=== PATIENT | female | born 1970 | race Caucasian/White ===

== ENCOUNTER 2025-09-01 13:44 | Observation (INO) ==
[2025-09-01 14:40] LABS: Hematocrit (blood only) 48.0 % (37.0-47.0); Hemoglobin 16.7 g/dl (12.0-16.0); Immature Granulocytes # (auto) 0.01 K/uL (0.01-0.20); Immature Granulocytes % (auto) 0.1 %; Mean Corpuscular Hemoglobin 30.6 pg (25.0-34.0); Mean Corpuscular Volume 87.9 fL (80.0-100.0); Platelet Count 183 K/uL (130-400); RDW Standard Deviation 41.9 fL (36.4-46.3); Red Blood Count 5.46 M/uL (4.20-5.40); White Blood Count 6.89 K/ul (4.8-10.8)
[2025-09-01] MEDS: MoRPHine SULFATE 4 MG/ML 1 ML CARP\\VIAL IV STA (14:51)
[2025-09-01] MEDS: ONDANSETRON INJ 2 MG/ML 2 ML VIAL IV STA (14:51)
[2025-09-01] MEDS: KETOROLAC TROMETHAMINE 15 MG/ML VIAL IV STA (14:52)
[2025-09-01] MEDS: PLASMA-LYTE A 1,000 ML IV ONE (14:52)
--- NOTE | 2025-09-01 14:56 | Emergency Department Note ---
Impression & Plan Diverticulitis, Abdominal pain ED Provider Note NAME: JOANN COSTA AGE: 55 SEX: F : 1970 ARRIVES VIA: Walk-In INFORMANT: Patient, family ED PROVIDER(S): Dagoberto Haro DO CHIEF COMPLAINT: abdominal pain HPI: This is a 55-year-old female with the PMHx of HTN and DM2 presenting to [facility] for further evaluation of abdominal pain. Patient is accompanied by her family who provide additional history. Patient reports ongoing abdominal pain that is worse in the left side. Patient states that she has had nausea. She states this has been ongoing since she was diagnosed with diverticulitis. Patient reports that she completed a full course of Ciprofloxain and Metronidazole. She states that she was originally on ciprofloxacin for a possible UTI and this was extended for diverticulitis. Patient reports numerous abdominal surgical history including , laparoscopic procedures for endometriosis, cholecystectomy and appendectomy. They deny fever or chills. No cough or congestion. Denies chest pain or palpitations. No shortness of breath. No urinary complaints. No recent changes in bowel movements. Patient denies recent changes in medications or OTC supplements. She states that her symptoms have become so severe that she struggles to tolerate p.o. intake. Patient offers no other complaints, today. ADDITIONAL HISTORY OBTAINED: Per HPI Chronic Medical/Social Conditions Affecting Care: Per HPI PAST MEDICAL HISTORY: See Below PAST SURGICAL HISTORY: See Below FAMILY HISTORY: See Below SOCIAL HISTORY: See Below HOME MEDICATIONS: See Below ALLERGIES: See Below VITALS: See Below PHYSICAL EXAMINATION: GENERAL: Sitting up in bed, alert, well appearing, well nourished, no distress, non-toxic EYE EXAM: normal conjunctiva. OROPHARYNX: no exudate, no erythema, lips, buccal mucosa, and tongue normal and mucous membranes are dry NECK: supple, no nuchal rigidity, no adenopathy, non-tender LUNGS: Clear to auscultation. Normal chest wall mechanics HEART: no murmurs, regular rate, regular rhythm ABDOMEN: abdomen soft, TTP in the LLQ and LUQ, no masses, no rebound or guarding. BACK: Back is symmetrical on inspection and there is no deformity, no midline tenderness, no CVA tenderness. SKIN: no rashes and no bruising UPPER EXTREMITIES: upper extremities are grossly normal. LOWER EXTREMITIES: No pitting edema. NEURO EXAM: Normal sensorium, GCS 15, normal speech, no gross weakness of arms, no gross weakness of legs. MEDICAL DECISION MAKING: Differential diagnoses includes but not limited to appendicitis, bowel obstruction, diverticulitis, malignancy, nephrolithiasis, gastroenteritis, ACS, PNA, pancreatitis, hepatobiliary disease, UTI, ovarian torsion, ovarian cyst, ovarian cyst rupture, vaginitis, MSK strain In summary, this is a 55 year old female who presented with LLQ pain. Differential as above. Nursing notes and pertinent past medical records reviewed. Vital signs reviewed and the patient is Afebrile and hemodynamically stable. History and presentation revealed recent diagnosis of diverticulitis that has been ongoing. She was treated for full course with ciprofloxacin and Flagyl now with ongoing symptoms with failure to improve. Physical examination revealed as above. As a result of my initial evaluation, IV access was established and the patient was placed on CCRM. Therapeutics ordered include IVFR, IV Toradol and morphine. Will repeat the patient's CT scan given ongoing symptoms. Diagnostics interpreted by me include EKG and cardiac monitoring as listed below: -Cardiac Monitoring: An order was placed for continuous cardiac monitoring. The monitor shows a rate of 60-100s with regular rhythm. -ECG: Normal sinus rhythm at a ventricular rate of [address] segment changes to suggest STEMI. Intervals normal. Patient completed laboratory studies and imaging. Results independently interpreted by me are no leukocytosis or anemia. There is no significant electrolyte derangements or significant kidney dysfunction from baseline. No changes in LFTs. No UTI on urinalysis. The patient was managed with IV fluid resuscitation and pain control. Patient required further IV opiates for pain control as she had recurrence of pain. Patient again has recurrence of diverticulitis on CT scan. Would consider this a failure of outpatient antibiotics. Vitals and labs are stable. She is having difficulties with p.o. intake. Feel she is unsafe for discharge at this time. Plan for admission for observation. IV abx with IV Zosyn started in the ED. Ultimately, the decision was made to admit the patient for failure of outpatient antibiotics for acute diverticulitis. I discussed the case with the hospitalist service via telephone/Tiger[employer] and they are agreeable to admit the patient to their services. Based on the above, including the patient's age, coexisting illnesses, labs, imaging, and exam findings the decision to treat as an inpatient. I discussed the patient with the hospitalist team who recommended admission to their services. They received the medications, treatments, interventions indicated above and their condition remained stable. I discussed my findings with the patient and their family and they understand and agree with the treatment plan. All patient / family questions were answered to their satisfaction. Consults/Care Managements Discussions: Per MDM ER treatment provided: See above Procedures:none Critical Care: None The chart was completed utilizing [employer] Speech voice recognition software. Grammatical errors, random word insertions, pronoun errors, and incomplete sentences are an occasional consequence of this system due to software limitations, ambient noise, and hardware issues. Any formal questions or concerns about the content, text, or information contained within the body of this dictation should be directly addressed to the physician for clarification. Past Med/Surg History Problem List (Updated 09/02/25 @ 23:16 by Dagoberto Haro DO) Constipation DM2 (diabetes mellitus, type 2) Essential hypertension Dehydration Diverticulitis (Acute) Abdominal pain (Acute) Medical History Kidney stone Social History Smoking Status: Current every day smoker Tobacco Type: Cigarettes Cigarettes Per Day: 6; Do You Dip or Chew Tobacco: No; Hx Alcohol Use: No Hx Substance Use: No Preferred Language: Divehi Communication Ability: Effective Duco Polisher Required: No Beliefs That Will Affect Care: None Current Living Situation: Family Feels Safe at Home: Yes Assistive Devices: Glasses Allergies Allergies Allergy/AdvReac Type Severity Reaction Status Date / Time hydrocodone [From [place]] Allergy Intermediate Itchiness Verified 09/01/25 16:28 Sulfa (Sulfonamide Allergy Intermediate Rash Verified 09/01/25 16:28 Antibiotics) Home Meds Home Medications Medication Instructions Recorded Confirmed alprazolam 0.5 mg tablet 0.5 mg PO TID PRN Anxiety 09/01/25 09/01/25 atorvastatin 10 mg tablet 10 mg PO DAILY 09/01/25 09/01/25 hydrochlorothiazide 12.5 mg tablet 12.5 mg PO DAILY PRN SWELLING 09/01/25 09/01/25 losartan 50 mg tablet 50 mg PO QAM 09/01/25 09/01/25 ondansetron HCl 4 mg tablet 4 mg PO Q8H PRN NAUSEA/VOMITING 09/01/25 09/01/25 potassium chloride 20 mEq 20 meq PO DAILY 09/01/25 09/01/25 tablet,extended release tirzepatide 5 mg/0.5 mL 5 mg subcut WK 09/01/25 09/01/25 subcutaneous pen injector (Anthony) trazodone 50 mg tablet 50 mg PO HS PRN Insomnia 09/01/25 09/01/25 vilazodone 40 mg tablet 40 mg PO QAM 09/01/25 09/01/25 Previous Rx's Medication Instructions Recorded oxycodone 5 mg tablet 5 mg PO Q6H PRN pain #8 tabs 07/19/19 Results & Data (ED) Vital Signs Vital Signs - 24 hr 09/01/25 13:47 09/01/25 15:06 09/01/25 15:06 Temperature 36.8 C Temperature Source Temporal Artery Scan Pulse Rate 108 H Pulse Rate [Right Finger] 78 Pulse Rate from SpO2 Sensor Respiratory Rate 20 18 Respiratory Effort / Characteristics Respiratory Depth Respiratory Pattern Blood Pressure 133/82 Blood Pressure [Right Arm] Blood Pressure Mean 99 Blood Pressure Mean [Right Arm] Blood Pressure Position [Right Arm] Pulse Oximetry 95 94 94 Oxygen Delivery Method Room Air Room Air Room Air Sepsis Recent Fever Within 48 Hours No Sepsis New/Unexplained Change in Mental Status No Sepsis Action Taken by Nursing No Action Required 09/01/25 15:30 09/01/25 15:30 09/01/25 15:30 Temperature Temperature Source Pulse Rate Pulse Rate [Right Finger] Pulse Rate from SpO2 Sensor Respiratory Rate Respiratory Effort / Characteristics Respiratory Depth Respiratory Pattern Blood Pressure 107/69 107/69 107/69 Blood Pressure [Right Arm] Blood Pressure Mean 86 86 86 Blood Pressure Mean [Right Arm] Blood Pressure Position [Right Arm] Pulse Oximetry Oxygen Delivery Method Sepsis Recent Fever Within 48 Hours Sepsis New/Unexplained Change in Mental Status Sepsis Action Taken by Nursing 09/01/25 15:33 09/01/25 15:42 09/01/25 15:51 Temperature Temperature Source Pulse Rate 74 62 74 Pulse Rate [Right Finger] Pulse Rate from SpO2 Sensor 74 62 74 Respiratory Rate 10 L 14 23 Respiratory Effort / Characteristics Respiratory Depth Respiratory Pattern Blood Pressure Blood Pressure [Right Arm] Blood Pressure Mean Blood Pressure Mean [Right Arm] Blood Pressure Position [Right Arm] Pulse Oximetry 95 98 96 Oxygen Delivery Method Sepsis Recent Fever Within 48 Hours Sepsis New/Unexplained Change in Mental Status Sepsis Action Taken by Nursing 09/01/25 16:00 09/01/25 16:10 09/01/25 16:12 Temperature Temperature Source Pulse Rate 76 76 68 Pulse Rate [Right Finger] Pulse Rate from SpO2 Sensor 76 69 Respiratory Rate 20 13 Respiratory Effort / Characteristics Respiratory Depth Respiratory Pattern Blood Pressure Blood Pressure [Right Arm] Blood Pressure Mean Blood Pressure Mean [Right Arm] Blood Pressure Position [Right Arm] Pulse Oximetry 98 98 Oxygen Delivery Method Sepsis Recent Fever Within 48 Hours Sepsis New/Unexplained Change in Mental Status Sepsis Action Taken by Nursing 09/01/25 16:21 09/01/25 16:30 09/01/25 16:42 Temperature Temperature Source Pulse Rate 69 67 72 Pulse Rate [Right Finger] Pulse Rate from SpO2 Sensor 69 67 74 Respiratory Rate 21 14 15 Respiratory Effort / Characteristics Respiratory Depth Respiratory Pattern Blood Pressure Blood Pressure [Right Arm] Blood Pressure Mean Blood Pressure Mean [Right Arm] Blood Pressure Position [Right Arm] Pulse Oximetry 98 98 97 Oxygen Delivery Method Sepsis Recent Fever Within 48 Hours Sepsis New/Unexplained Change in Mental Status Sepsis Action Taken by Nursing 09/01/25 16:48 09/01/25 16:50 09/01/25 16:50 Temperature Temperature Source Pulse Rate 85 Pulse Rate [Right Finger] Pulse Rate from SpO2 Sensor 84 Respiratory Rate 20 Respiratory Effort / Characteristics Respiratory Depth Respiratory Pattern Blood Pressure 111/83 111/83 Blood Pressure [Right Arm] Blood Pressure Mean 89 89 Blood Pressure Mean [Right Arm] Blood Pressure Position [Right Arm] Pulse Oximetry 94 Oxygen Delivery Method Sepsis Recent Fever Within 48 Hours Sepsis New/Unexplained Change in Mental Status Sepsis Action Taken by Nursing 09/01/25 16:50 09/01/25 16:50 09/01/25 16:50 Temperature Temperature Source Pulse Rate Pulse Rate [Right Finger] Pulse Rate from SpO2 Sensor Respiratory Rate Respiratory Effort / Characteristics Respiratory Depth Respiratory Pattern Blood Pressure 111/83 111/83 111/83 Blood Pressure [Right Arm] Blood Pressure Mean 89 89 89 Blood Pressure Mean [Right Arm] Blood Pressure Position [Right Arm] Pulse Oximetry Oxygen Delivery Method Sepsis Recent Fever Within 48 Hours Sepsis New/Unexplained Change in Mental Status Sepsis Action Taken by Nursing 09/01/25 16:51 09/01/25 17:00 09/01/25 17:00 Temperature Temperature Source Pulse Rate 80 Pulse Rate [Right Finger] 73 Pulse Rate from SpO2 Sensor 81 Respiratory Rate 17 18 Respiratory Effort / Characteristics Respiratory Depth Respiratory Pattern Blood Pressure 120/85 Blood Pressure [Right Arm] 95/74 L Blood Pressure Mean 100 Blood Pressure Mean [Right Arm] 81 Blood Pressure Position [Right Arm] Pulse Oximetry 97 95 Oxygen Delivery Method Room Air Sepsis Recent Fever Within 48 Hours Sepsis New/Unexplained Change in Mental Status Sepsis Action Taken by Nursing 09/01/25 17:00 09/01/25 17:00 09/01/25 17:00 Temperature Temperature Source Pulse Rate Pulse Rate [Right Finger] Pulse Rate from SpO2 Sensor Respiratory Rate Respiratory Effort / Characteristics Respiratory Depth Respiratory Pattern Blood Pressure 120/85 120/85 120/85 Blood Pressure [Right Arm] Blood Pressure Mean 100 100 100 Blood Pressure Mean [Right Arm] Blood Pressure Position [Right Arm] Pulse Oximetry Oxygen Delivery Method Sepsis Recent Fever Within 48 Hours Sepsis New/Unexplained Change in Mental Status Sepsis Action Taken by Nursing 09/01/25 17:00 09/01/25 17:00 09/01/25 17:12 Temperature Temperature Source Pulse Rate 84 74 Pulse Rate [Right Finger] Pulse Rate from SpO2 Sensor 84 75 Respiratory Rate 16 24 Respiratory Effort / Characteristics Respiratory Depth Respiratory Pattern Blood Pressure 120/85 Blood Pressure [Right Arm] Blood Pressure Mean 100 Blood Pressure Mean [Right Arm] Blood Pressure Position [Right Arm] Pulse Oximetry 96 95 Oxygen Delivery Method Sepsis Recent Fever Within 48 Hours Sepsis New/Unexplained Change in Mental Status Sepsis Action Taken by Nursing 09/01/25 17:15 09/01/25 17:15 09/01/25 17:15 Temperature Temperature Source Pulse Rate Pulse Rate [Right Finger] Pulse Rate from SpO2 Sensor Respiratory Rate Respiratory Effort / Characteristics Respiratory Depth Respiratory Pattern Blood Pressure 99/73 L 99/73 L 99/73 L Blood Pressure [Right Arm] Blood Pressure Mean 80 80 80 Blood Pressure Mean [Right Arm] Blood Pressure Position [Right Arm] Pulse Oximetry Oxygen Delivery Method Sepsis Recent Fever Within 48 Hours Sepsis New/Unexplained Change in Mental Status Sepsis Action Taken by Nursing 09/01/25 17:15 09/01/25 17:15 09/01/25 17:15 Temperature Temperature Source Pulse Rate 79 Pulse Rate [Right Finger] Pulse Rate from SpO2 Sensor 77 Respiratory Rate 17 Respiratory Effort / Characteristics Respiratory Depth Respiratory Pattern Blood Pressure 99/73 L 99/73 L Blood Pressure [Right Arm] Blood Pressure Mean 80 80 Blood Pressure Mean [Right Arm] Blood Pressure Position [Right Arm] Pulse Oximetry 94 Oxygen Delivery Method Sepsis Recent Fever Within 48 Hours Sepsis New/Unexplained Change in Mental Status Sepsis Action Taken by Nursing 09/01/25 17:21 09/01/25 17:30 09/01/25 17:30 Temperature Temperature Source Pulse Rate 72 Pulse Rate [Right Finger] Pulse Rate from SpO2 Sensor 72 Respiratory Rate 20 Respiratory Effort / Characteristics Respiratory Depth Respiratory Pattern Blood Pressure 95/74 L 95/74 L Blood Pressure [Right Arm] Blood Pressure Mean 79 79 Blood Pressure Mean [Right Arm] Blood Pressure Position [Right Arm] Pulse Oximetry 94 Oxygen Delivery Method Sepsis Recent Fever Within 48 Hours Sepsis New/Unexplained Change in Mental Status Sepsis Action Taken by Nursing 09/01/25 17:30 09/01/25 17:30 09/01/25 17:30 Temperature Temperature Source Pulse Rate Pulse Rate [Right Finger] Pulse Rate from SpO2 Sensor Respiratory Rate Respiratory Effort / Characteristics Respiratory Depth Respiratory Pattern Blood Pressure 95/74 L 95/74 L 95/74 L Blood Pressure [Right Arm] Blood Pressure Mean 79 79 79 Blood Pressure Mean [Right Arm] Blood Pressure Position [Right Arm] Pulse Oximetry Oxygen Delivery Method Sepsis Recent Fever Within 48 Hours Sepsis New/Unexplained Change in Mental Status Sepsis Action Taken by Nursing 09/01/25 17:30 09/01/25 18:31 Temperature Temperature Source Pulse Rate 75 Pulse Rate [Right Finger] 72 Pulse Rate from SpO2 Sensor 76 Respiratory Rate 18 18 Respiratory Effort / Characteristics Non-Labored Spontaneous Respiratory Depth Normal Respiratory Pattern Regular Blood Pressure Blood Pressure [Right Arm] 124/82 Blood Pressure Mean Blood Pressure Mean [Right Arm] 96 Blood Pressure Position [Right Arm] Semi-fowlers Pulse Oximetry 95 96 Oxygen Delivery Method Room Air Sepsis Recent Fever Within 48 Hours Sepsis New/Unexplained Change in Mental Status Sepsis Action Taken by Nursing Laboratory Data 09/02/25 10:28 09/02/25 10:28 Lab Results 09/01/25 09/01/25 09/01/25 Range/Units 14:25 14:35 15:30 WBC 6.89 (4.8-10.8) K/ul RBC 5.46 H (4.20-5.40) M/uL Hgb 16.7 H (12.0-16.0) g/dl Hct 48.0 H (37.0-47.0) % MCV 87.9 (80.0-100.0) fL MCH 30.6 (25.0-34.0) pg MCHC 34.8 (32.0-36.0) g/dL RDW Std Deviation 41.9 (36.4-46.3) fL RDW Coeff of Thanh 13.0 (11.5-14.5) % Plt Count 183 (130-400) K/uL MPV 9.3 L (9.4-12.4) fL Immature Gran % (Auto) 0.1 % Neut % (Auto) 51.6 % Lymph % (Auto) 36.7 % [place] % (Auto) 6.8 % Eos % (Auto) 3.9 % Baso % (Auto) 0.9 % Neut # (Auto) 3.55 (1.40-6.50) K/uL Lymph # (Auto) 2.53 (1.20-3.40) K/uL [place] # (Auto) 0.47 (0.11-0.59) K/uL Eos # (Auto) 0.27 (0.00-0.50) K/uL Baso # (Auto) 0.06 (0.00-0.20) K/uL Immature Gran # (Auto) 0.01 (0.01-0.20) K/uL Sodium 140 (136-145) mmol/L Potassium 4.2 (3.5-5.1) mmol/L Chloride 104 (98-107) mmol/L Carbon Dioxide 27 (21-32) mmol/L Anion Gap 9 (3-11) BUN 8 (6-23) mg/dl Creatinine 0.71 (0.6-1.2) mg/dl Est Cr Clr Drug Dosing 88.2 ml/min eGFR 100.98 BUN/Creatinine Ratio 11.3 (10-20) Glucose 98 (70-99(Fasting)) mg/dl Lactate 1.1 (0.4-2.0) mmol/L Calcium 9.9 (8.6-10.3) mg/dl Total Bilirubin 0.6 (0.2-1.0) mg/dl AST 18 (13-39) U/L ALT 27 (7-52) U/L Alkaline Phosphatase 71 (34-104) U/L Total Protein 7.5 (6.0-8.3) gm/dl Albumin 4.3 (3.4-5.0) gm/dl Globulin 3.2 (2.5-4.0) gm/dl Albumin/Globulin Ratio 1.3 (0.9-2) Lipase 24 (11-82) U/L Urine Color Yellow Urine Appearance Clear (Clear) Urine pH 5.5 (4.5-7.5) Ur Specific [place] 1.012 (1.000-1.030) Urine Protein Negative (Negative) Urine Glucose (UA) Negative (Negative) Urine Ketones Trace H (Negative) Urine Blood Negative (Negative) Urine Nitrite Negative (Negative) Urine Bilirubin Negative (Negative) Urine Urobilinogen Negative (Negative) Ur Leukocyte Esterase Negative (Negative) Urine Comment Administered Medications Al Hydrox/Mg Hydrox/Simethicone (Aluminum/Magnesium/Simeth (Maalox Max) 30 Ml Udc) 30 ml PO QID FACUNDO Stop: 10/01/25 21:00 Last Admin: 09/02/25 20:09 Dose: 30 ml Documented By: angela Admin: 09/02/25 16:55 Dose: 30 ml Documented By: Admin: 09/02/25 13:05 Dose: 30 ml Documented By: Admin: 09/02/25 08:20 Dose: 30 ml Documented By: Admin: 09/01/25 21:31 Dose: 30 ml Documented By: LINNEA Alprazolam (Alprazolam 0.5 Mg Tablet) 0.5 mg PO TID PRN PRN Reason: Anxiety Stop: 10/01/25 21:00 Last Admin: 09/02/25 16:21 Dose: 0.5 mg Documented By: Admin: 09/02/25 11:06 Dose: 0.5 mg Documented By: Admin: 09/01/25 21:54 Dose: 0.5 mg Documented By: LINNEA Enoxaparin Sodium (Enoxaparin Inj 40 Mg/0.4 Ml Syr) 40 mg SQ Q24H [facility] Stop: 10/01/25 20:59 Last Admin: 09/02/25 20:10 Dose: Not Given Documented By: angela Admin: 09/01/25 21:50 Dose: Not Given Documented By: LINNEA Hydromorphone HCl (Hydromorphone Inj 0.5 Mg/0.5 Ml Syr) 0.5 mg IV Q4H PRN PRN Reason: Pain - severe/breakthrough Stop: 09/15/25 21:00 Last Admin: 09/02/25 19:33 Dose: 0.5 mg Documented By: angela Admin: 09/02/25 12:21 Dose: 0.5 mg Documented By: Admin: 09/02/25 08:20 Dose: 0.5 mg Documented By: Admin: 09/02/25 00:59 Dose: 0.5 mg Documented By: HFW Lactated Ringer's (Lr) 1,000 mls @ 100 mls/hr IV .Q10H FACUNDO Stop: 09/04/25 21:00 Last Infusion: 09/02/25 22:37 Dose: 100 mls/hr Documented By: angela Infusion: 09/02/25 22:02 Dose: 0 mls/hr Documented By: angela Infusion: 09/02/25 18:21 Dose: 100 mls/hr Documented By: Admin: 09/02/25 13:36 Dose: 125 mls/hr Documented By: Infusion: 09/02/25 13:31 Dose: Infused Documented By: Admin: 09/02/25 05:31 Dose: 125 mls/hr Documented By: Infusion: 09/02/25 05:31 Dose: Infused Documented By: Admin: 09/01/25 21:31 Dose: 125 mls/hr Documented By: HFW Ampicillin Sodium/Sulbactam Sodium (Unasyn) 3,000 mg in 100 mls @ 200 mls/hr IV Q6H FACUNDO Stop: 09/11/25 21:00 Last Infusion: 09/02/25 22:37 Dose: Infused Documented By: angela Admin: 09/02/25 21:58 Dose: 200 mls/hr Documented By: angela Infusion: 09/02/25 16:39 Dose: Infused Documented By: Admin: 09/02/25 15:56 Dose: 200 mls/hr Documented By: Infusion: 09/02/25 12:19 Dose: Infused Documented By: Admin: 09/02/25 11:06 Dose: 200 mls/hr Documented By: Infusion: 09/02/25 05:29 Dose: Infused Documented By: Admin: 09/02/25 04:58 Dose: 200 mls/hr Documented By: Infusion: 09/01/25 22:51 Dose: Infused Documented By: Admin: 09/01/25 22:13 Dose: 200 mls/hr Documented By: LINNEA Famotidine (Pepcid 20mg Iv Push) 20 mg in 5 mls @ 2.5 mls/min IV Q12H FACUNDO Stop: 10/02/25 05:59 Last Admin: 09/02/25 18:18 Dose: 2.5 mls/min Documented By: Admin: 09/02/25 05:28 Dose: 2.5 mls/min Documented By: LINNEA Pantoprazole Sodium (Protonix) 40 mg in 10 mls @ 5 mls/min IV BID FACUNDO Stop: 10/01/25 21:00 Last Admin: 09/02/25 20:11 Dose: 5 mls/min Documented By: angela Admin: 09/02/25 08:21 Dose: 5 mls/min Documented By: Admin: 09/01/25 21:49 Dose: 5 mls/min Documented By: LINNEA Miscellaneous (Vilazodone 40 Mg - Order Awaiting Action) 1 each N/A QS FACUNDO Stop: 10/02/25 00:00 Last Admin: 09/02/25 15:49 Dose: Not Given Documented By: Admin: 09/02/25 08:21 Dose: Not Given Documented By: Admin: 09/02/25 00:44 Dose: Not Given Documented By: LINNEA Ondansetron HCl (Ondansetron Inj 2 Mg/Ml 2 Ml Vial) 4 mg IV Q4H PRN PRN Reason: Nausea Stop: 10/02/25 01:04 Last Admin: 09/02/25 08:20 Dose: 4 mg Documented By: Admin: 09/02/25 01:21 Dose: 4 mg Documented By: LINNEA Oxycodone HCl (Oxycodone Hcl Ir 5 Mg Tab (Immediate Release)) 5 mg PO Q4H PRN PRN Reason: Pain - moderate Stop: 09/15/25 21:00 Last Admin: 09/02/25 05:00 Dose: 5 mg Documented By: LINNEA Discontinued Medications Acetaminophen (Acetaminophen 325 Mg Tab) 650 mg PO NOW STA Stop: 09/01/25 17:46 Last Admin: 09/01/25 17:53 Dose: 650 mg Documented By: demar Fentanyl Citrate (Fentanyl Citrate Pf 100 Mcg/2 Ml Vial) 50 mcg IV NOW ONE Stop: 09/01/25 16:12 Last Admin: 09/01/25 16:38 Dose: 50 mcg Documented By: demar Hydromorphone HCl (Hydromorphone Inj 0.5 Mg/0.5 Ml Syr) 0.5 mg IV NOW STA Stop: 09/01/25 17:46 Last Admin: 09/01/25 17:52 Dose: 0.5 mg Documented By: demar Parenteral Electrolytes (Plasma-Lyte A Ph 7.4) 1,000 mls @ 999 mls/hr IV .Q1H1M ONE Stop: 09/01/25 15:21 Last Infusion: 09/01/25 16:46 Dose: Infused Documented By: demar Admin: 09/01/25 14:52 Dose: 999 mls/hr Documented By: NELSON Piperacillin Sod/Tazobactam Sod (Zosyn) 4.5 gm in 100 mls @ 200 mls/hr IV NOW ONE; Protocol Stop: 09/01/25 16:40 Last Infusion: 09/01/25 17:36 Dose: Infused Documented By: demar Admin: 09/01/25 16:37 Dose: 200 mls/hr Documented By: demar Parenteral Electrolytes (Plasma-Lyte A Ph 7.4) 1,000 mls @ 125 mls/hr IV .Q8H FACUNDO Stop: 09/04/25 16:14 Last Infusion: 09/01/25 21:03 Dose: Infused Documented By: Infusion: 09/01/25 21:02 Dose: 0 mls/hr Documented By: Admin: 09/01/25 18:36 Dose: 125 mls/hr Documented By: MARLON Famotidine (Pepcid 20mg Iv Push) 20 mg in 5 mls @ 2.5 mls/min IV NOW STA Stop: 09/01/25 17:46 Last Admin: 09/01/25 17:53 Dose: 2.5 mls/min Documented By: demar Ioversol (Optiray 320 100ml) 90 ml IV ONCE ONE Stop: 09/01/25 15:21 Last Admin: 09/01/25 15:21 Dose: 90 ml Documented By: RAFAEL Ketorolac Tromethamine (Ketorolac Tromethamine 15 Mg/Ml Vial) 10 mg IV NOW STA Stop: 09/01/25 14:22 Last Admin: 09/01/25 14:52 Dose: 10 mg Documented By: CAP Morphine Sulfate (Morphine Sulfate 4 Mg/Ml 1 Ml Carp\Vial) 4 mg IV NOW STA Stop: 09/01/25 14:22 Last Admin: 09/01/25 14:51 Dose: 4 mg Documented By: CAP Ondansetron HCl (Ondansetron Inj 2 Mg/Ml 2 Ml Vial) 4 mg IV NOW STA Stop: 09/01/25 14:22 Last Admin: 09/01/25 14:51 Dose: 4 mg Documented By: CAP Polyethylene Glycol (Polyethylene (Miralax) 17 Gm Pack) 85 gm PO ONE ONE Stop: 09/02/25 15:37 Last Admin: 09/02/25 16:16 Dose: 85 gm Documented By: EA Imaging Data Radiologist's Impression: Abdomen/Pelvis CT 09/01/25 14:22 CT SCAN OF THE ABDOMEN AND PELVIS WITH IV CONTRAST CLINICAL HISTORY: Abdominal pain. Evaluate for diverticulitis. COMPARISON STUDY: KUB and renal ultrasound July 19, 2019. TECHNIQUE: Following the IV administration of 90 cc of Optiray 320, CT scan of the abdomen and pelvis is performed from the lung bases to the proximal femora. Images are reviewed in the axial, sagittal, and coronal planes. IV contrast was administered without complication. A dose lowering technique was utilized adhering to the principles of ALARA. CT DOSE: 716.21 mGy.cm FINDINGS: Subpleural lower lobe opacities represent atelectasis. There is no pneumatosis, free air or portal venous gas. Mild prominence of the intrahepatic bile ducts is likely related to cholecystectomy. There are no hepatic lesions. Ventral hernia repair with mesh is incidentally noted. The spleen, adrenal glands, kidneys and pancreas are unremarkable. There is no pancreatic ductal dilatation. There are bilateral renal parapelvic cysts. There is no hydronephrosis. No renal lesions are present. Caliber and wall thickness of small and large bowel are normal. There is a mildly inflamed diverticulum of the splenic flexure of the colon on image 61 of 353. No free air is present. There is no abscess. No additional sites of inflammation are present. The appendix is not visualized and is likely surgically absent. Major vasculature is patent. There is no lymphadenopathy. There are no fluid collections. Pelvic calcifications represent phleboliths. There are no urinary calculi. IMPRESSION: 1. Colonic diverticulosis. Mild diverticulitis of the splenic flexure of the colon. No free air or abscess. 2. No bowel obstruction. 3. Mild prominence of intrahepatic bile ducts likely related to cholecystectomy. ACT 112: Negative or not required by law. Electronically signed by: Fercho Akhtar M.D. 09/01/2025 3:34 PM Discharge Plan Visit Data Chief Complaint: Abdominal Pain Stated Complaint: ABD PAIN, NAUSEA, RECENT DIVERTICULITIS ED Provider: Dagoberto Haro Discharge Problem: Diverticulitis, Abdominal pain Patient Disposition: Admitted As Inpatient Condition: Fair Discharge Instructions Interventions: ED Discharge Assessment Last Done: 09/01/25 20:48
[2025-09-01 14:57] LABS: Alanine Aminotransferase 27.0 U/L (7-52); Albumin Globulin Ratio 1.3 (0.9-2); Albumin Level 4.3 gm/dl (3.4-5.0); Alkaline Phosphatase 71.0 U/L (34-104); Anion Gap 9.0 (3-11); Bilirubin,Total 0.6 mg/dl (0.2-1.0); Blood Urea Nitrogen 8.0 mg/dl (6-23); Calcium 9.9 mg/dl (8.6-10.3); Carbon Dioxide 27.0 mmol/L (21-32); Chloride 104.0 mmol/L (98-107); Creatinine Clr Calc Pharmacy 88.2 ml/min; Globulin 3.2 gm/dl (2.5-4.0); Glucose 98.0 mg/dl (70-99(Fasting)); Lipase 24.0 U/L (11-82); Potassium 4.2 mmol/L (3.5-5.1); Sodium 140.0 mmol/L (136-145); Total Protein 7.5 gm/dl (6.0-8.3)
[2025-09-01] MEDS: OPTIRAY 320 100ml IV ONE (15:21)
--- NOTE | 2025-09-01 15:36 | CT Scan Report ---
CT SCAN OF THE ABDOMEN AND PELVIS WITH IV CONTRAST CLINICAL HISTORY: Abdominal pain. Evaluate for diverticulitis. COMPARISON STUDY: [facility]UB and renal ultrasound July 19, 2019. TECHNIQUE: Following the IV administration of 90 cc of Optiray 320, CT scan of the abdomen and pelvis is performed from the lung bases to the proximal femora. Images are reviewed in the axial, sagittal, and coronal planes. IV contrast was administered without complication. A dose lowering technique was utilized adhering to the principles of ALARA. CT DOSE: 716.21 mGy.cm FINDINGS: Subpleural lower lobe opacities represent atelectasis. There is no pneumatosis, free air or portal venous gas. Mild prominence of the intrahepatic bile ducts is likely related to cholecystecto my. There are no hepatic lesions. Ventral hernia repair with mesh is incidentally noted. The spleen, adrenal glands, kidneys and pancreas are unremarkable. There is no pancreatic ductal dilatation. Ther e are bilateral renal parapelvic cysts. There is no hydronephrosis. No renal lesions are present. Greg iber and wall thickness of small and large bowel are normal. There is a mildly inflamed diverticulum of the splenic flexure of the colon on image 61 of 353. No free air is present. There is no abscess. No additional sites of inflammation are present. The appendix is not visualized and is likely surgica lly absent. Major vasculature is patent. There is no lymphadenopathy. There are no fluid collections. Pelvic calcifications represent phleboliths. There are no urinary calculi. IMPRESSION: 1. Colonic diverticulosis. Mild diverticulitis of the splenic flexure of the colon. No free air or ab scess. 2. No bowel obstruction. 3. Mild prominence of intrahepatic bile ducts likely related to cholecystectomy. ACT 112: Negative or not required by law. Electronically signed by: Fercho Akhtar M.D. 09/01/2025 3:34 PM
[2025-09-01 15:43] LABS: Appearance Urine Clear (Clear); Glucose Urine UA Negative (Negative)
[2025-09-01] MEDS: PIPERACILLIN/TAZOBACTAM 4.5 GM/100 ML BAG IV ONE (16:37)
--- NOTE | 2025-09-01 17:24 | History & Physical Report ---
Date of Service September 01, 2025 Assessment & Plan (1) Abdominal pain: (2) Diverticulitis: (3) Dehydration: (4) Essential hypertension: (5) DM2 (diabetes mellitus, type 2): Plan #abdominal pain -carrying dx diverticulitis - but was Rx'd with cipro/flagyl and pain predominantly R sided while CT findings c/w splenic flexture diverticulitis -doubt failed abx - but with no perforation or abscess, hard to disprove ongoing diverticulitis -suspect some pain from diverticulitis, some from gas/fecal burden -with pain and poor PO intake, looking dehydrated - also suspect some pain from the general abdominal malaise that often comes with dehydration ---admit, pain control, serial exams ---unasyn to cover for possible ongoing diverticulitis ---bowel regimen - right now start w mylanta QID as osmotic laxative that hopefully can still help w upper GI sx some --serial exams, serial labs, serial hx, time//follow for changes #dehydration -IV fluids #polycythemia -likely volume contraction from dehydration -CBC in AM #HTN -hold home meds for now since volume depleted #DM -well controlled - with A1c 5's nothing needed #DVT proph -lovenox History of Present Illness Chief Complaint: abdominal pain Primary Care Provider: Nino Spears PA-C Patient is a very pleasant 55-year-old female who presents with about 2 weeks of abdominal pain. She started with right-sided abdominal pain about 2 weeks ago. Was treated with Cipro and Flagyl, but has not improved at all. At one point early in the course she also had some degree of urethral pain and urinary urgency, and given that she had right sided pain and the urinary symptoms, she had a CT scan with concern for if she was passing kidney stone/had pyelonephritisthis was whenever she was first shown to have diverticulitisbut at the splenic flexure. Since the initial onset of right sided abdominal pain, it has secondarily generalized and is now fairly diffuse. She does note also having to strain for bowel movements. No fevers chills or sweats. Poor p.o. intake and some indigestion, although not overt vomiting. Notes she has been feeling so bad and has had such bad p.o. intake over the last 2 weeks she has lost about 12 pounds. Past medical history includes well-controlled diabetesshe notes she is on Mounjaro but also notes that her last A1c was in the mid fives. Hypertension. Depression/anxiety. Family history includes diabetes, hyperlipidemia, hypertension. She is an RN at [employer]. Allergies Allergy/AdvReac Type Severity Reaction Status Date / Time hydrocodone [From [place]] Allergy Intermediate Itchiness Verified 09/01/25 16:28 Sulfa (Sulfonamide Allergy Intermediate Rash Verified 09/01/25 16:28 Antibiotics) Home Medications Medication Instructions Recorded Confirmed Type oxycodone 5 mg tablet 5 mg PO Q6H PRN pain #8 tabs 07/19/19 09/01/25 Rx alprazolam 0.5 mg tablet 0.5 mg PO TID PRN Anxiety 09/01/25 09/01/25 History atorvastatin 10 mg tablet 10 mg PO DAILY 09/01/25 09/01/25 History hydrochlorothiazide 12.5 mg tablet 12.5 mg PO DAILY PRN SWELLING 09/01/25 09/01/25 History losartan 50 mg tablet 50 mg PO QAM 09/01/25 09/01/25 History ondansetron HCl 4 mg tablet 4 mg PO Q8H PRN NAUSEA/VOMITING 09/01/25 09/01/25 History potassium chloride 20 mEq 20 meq PO DAILY 09/01/25 09/01/25 History tablet,extended release tirzepatide 5 mg/0.5 mL 5 mg subcut WK 09/01/25 09/01/25 History subcutaneous pen injector (Mounjaro) trazodone 50 mg tablet 50 mg PO HS PRN Insomnia 09/01/25 09/01/25 History vilazodone 40 mg tablet 40 mg PO QAM 09/01/25 09/01/25 History Past Med/Surg History Problem List (Updated 09/01/25 @ 17:44 by Talat Rudolph DO) DM2 (diabetes mellitus, type 2) Essential hypertension Dehydration Diverticulitis Abdominal pain Medical History Kidney stone Social History Smoking Status: Current every day smoker Preferred Language: Albanian Feels Safe at Home: Yes Review of Systems Review of Systems: All systems reviewed & are unremarkable except as noted in HPI & below Physical Exam Physical Exam: In general she is awake alert pleasant no distress but does appear quite fatigued. HEENT normocephalic atraumatic mucous membranes slightly dry. Cardio is regular without rubs murmurs or gallops. Lungs clear without rales rhonchi or wheezes good effort no accessory muscle use. Abdomen is soft, mild diffuse tenderness seems to be worse epigastric and right sided, a little bit left- sided. No guarding rebound or rigidity. Extremities show no sinus clubbing or edema no calf tenderness. Neuro without focal deficits. Skin without rashes pallor or icterus. Labs and diagnostics notedCT scan from [facility] from previous showed splenic diverticulitis and I believe moderate fecal retention, CT scan from today reviewed as wellsplenic flexure diverticulitis no abscessand to my review while there is not an overwhelming amount of gas and feces there is notable gas and feces. Appendix not visualized. Results & Data Results & Data Vital Signs (Past 12 Hours) Vital Signs Temp Pulse Pulse Resp BP Pulse Ox O2 Del Method 09/01/25 16:10 76 09/01/25 15:42 62 14 98 09/01/25 15:33 74 10 L 95 09/01/25 15:30 107/69 09/01/25 15:30 107/69 09/01/25 15:30 107/69 09/01/25 15:06 94 Room Air 09/01/25 15:06 78 18 94 Room Air 09/01/25 13:47 98.2 F 108 H 20 133/82 95 Room Air Code Status & VTE Plan VTE Prophylaxis Plan VTE Prophylaxis will be ordered: Yes PG Care Time/CCT Total # of Minutes Spent Total Time Spent with Patient: Total time spent is greater than 50% in coordination of care (as documented) at patient's floor/unit and/or counseling patient: Coding Level of Care Code 90654 INT INP/OBS CARE 3/75MIN Diagnoses Abdominal pain R10.9 Diverticulitis K57.92 Dehydration E86.0 Essential hypertension I10 DM2 (diabetes mellitus, type 2) E11.9
[2025-09-01] MEDS: HYDROmorphone INJ 0.5 MG/0.5 ML SYR IV STA (17:52)
[2025-09-01] MEDS: ACETAMINOPHEN 325 MG TAB PO STA (17:53)
[2025-09-01] MEDS: FAMOTIDINE 20MG IV PUSH 20 MG/5 ML SYR IV STA (17:53)
[2025-09-01] MEDS: PLASMA-LYTE A 1,000 ML IV SCH (18:36)
[2025-09-01] MEDS ORDERED: MAGNESIUM HYDROXIDE SUSP 30 ML UDC PO PRN (21:01)
[2025-09-01] MEDS ORDERED: KETOROLAC TROMETHAMINE 15 MG/ML VIAL IV PRN (21:01)
[2025-09-01] MEDS ORDERED: ALUMINUM/MAGNESIUM SUSP 30 ML UDC PO PRN (21:01)
[2025-09-01] MEDS: LACTATED RINGER'S 1,000 ML IV SCH (21:31)
[2025-09-01] MEDS: ALUMINUM/MAGNESIUM/SIMETH (MAALOX MAX) 30 ML UDC PO SCH (21:31)
[2025-09-01] MEDS: PANTOprazole 40 MG/10 ML SYR IV SCH (21:49)
[2025-09-01] MEDS: ENOXAPARIN INJ 40 MG/0.4 ML SYR SQ SCH (21:50)
[2025-09-01] MEDS: AMPICILLIN/SULBACTAM SOD 3,000 MG/100 ML BAG IV SCH (22:13)
[2025-09-02] MEDS: HYDROmorphone INJ 0.5 MG/0.5 ML SYR IV PRN (00:59)
[2025-09-02] MEDS: ONDANSETRON INJ 2 MG/ML 2 ML VIAL IV PRN (01:21)
[2025-09-02] MEDS: FAMOTIDINE 20MG IV PUSH 20 MG/5 ML SYR IV SCH (05:28)
--- NOTE | 2025-09-02 10:40 | Hospitalist Progress Note ---
Date of Service September 02, 2025 Assessment & Plan (1) Abdominal pain: (2) Constipation: (3) Diverticulitis: (4) DM2 (diabetes mellitus, type 2): Plan Ninfa is a 55yo female with PMHx diverticulosis w/ diverticulitis, HTN, DM2, came to the ED for continued abdominal pain R>L despite cipro and flagyl for outpatient mgmt of diverticulitis, admitted for abdominal pain, possible refractory diverticulitis. Requires continued inpatient monitoring and medical management. #Abdominal pain Likely due to combination of known stool burden and diverticulitis on imaging - recently on cipro/flagyl, pain predominantly R>L however CT findings c/w splenic flexure diverticulitis - no perforation or abscess seen on imaging, and with generally benign abdominal exam - likely some from contributed from gas/fecal burden - continue pain control and serial abd exams - continue Unasyn to cover for possible ongoing diverticulitis, plan to transition to Augmentin once better tolerating PO - continue mylanta QID as osmotic laxative with plan to escalate to Miralax vs GoLytely if continued no BM #Dehydration - continue LR 125cc/hr, consider dec to 80cc once increased PO intake #Polycythemia -likely volume contraction from dehydration -CBC in AM: if continued elevated Hgb and Hct despite re-hydration, will consider peripheral smear #HTN - continue holding home meds while BP still soft and re-hydrating #DM2 -well controlled - with A1c 5's nothing needed DVT proph -lovenox Admission and Anticipated Discharge Date Admission Date: September 01, 2025 Supervising Physician Co-Signing Physician Notes I personally examined the patient and verified all [place] points of history and exam, discussed case, and agree with decision making with Dr Ibrahim Feeling about the same. No new changes. Also has not had a bowel movement. Vitals noted, in general she is awake and alert fatigued. HEENT normocephalic atraumatic mucous membranes moist. Abdomen is soft mild distention mild to moderate right sided and epigastric abdominal tenderness without guarding or reboundalmost identical to yesterday. Abdominal paincurrent working diagnosis would be that she had diverticulitisthis has either resolved or is resolving (continue to cover with antibiotics given that it does not clear that it is totally gone)but that the current abdominal pain is more due to constipationwhich was probably subsequent to the GI distress from the diverticulitis, as well as side effect of pain medication. Given that she was feeling sick, we were trying to utilize Mylanta as an osmotic laxative as a bowel regimen, but it has been met with no effect. She does feel like she could tolerate more aggressive regimenMiraLAX 85 g p.o. x 1 nowif this does not affect decent bowel movements, then we will probably just escalate to a bowel prep for colonoscopy. DVT prophylaxisLovenox Otherwise as above. Anoop Ocasio was seen and evaluated at bedside this AM. Endorses not feeling much improvement of her abdominal pain which was a 6/10 earlier but now 0-11/04 after receiving her pain meds. Denies any BM or passing gas since 08/31, which is abnormal for her. Endorses some nausea but no vomiting. Physical Exam Physical Exam: Gen: appearing in mild distress, tired CV: RRR, +s1/s2, no m/r/g Resp: clear to auscultation b/l, no w/r/R, no increased WOB GI/Abd: normo-hyperactive BS, no obvious distension, no guarding but tenderness to palpation of general abdomen mostly RLQ>LLQ>epigastric Neuro: no facial droop, speech intact, no focal deficits Results & Data Results & Data Vital Signs (Past 12 Hours) Vital Signs Temp Pulse Resp BP Pulse Ox O2 Del Method 09/02/25 07:49 36.9 C 67 16 92/63 L 99 Room Air Resident Activity Tracking Resident Involvement: Resident Care Provided Care Provided: Adult Hospital Medicine (2) Constipation Constipation type: unspecified constipation type Qualified Code(s): K59.00 - Constipation, unspecified
[2025-09-02 10:41] LABS: Hematocrit (blood only) 43.8 % (37.0-47.0); Hemoglobin 14.4 g/dl (12.0-16.0); Immature Granulocytes # (auto) 0.01 K/uL (0.01-0.20); Immature Granulocytes % (auto) 0.2 %; Mean Corpuscular Hemoglobin 30.1 pg (25.0-34.0); Mean Corpuscular Volume 91.4 fL (80.0-100.0); Platelet Count 150 K/uL (130-400); RDW Standard Deviation 42.8 fL (36.4-46.3); Red Blood Count 4.79 M/uL (4.20-5.40); White Blood Count 4.80 K/ul (4.8-10.8)
[2025-09-02 10:58] LABS: Anion Gap 6.0 (3-11); Blood Urea Nitrogen 7.0 mg/dl (6-23); Calcium 9.0 mg/dl (8.6-10.3); Carbon Dioxide 31.0 mmol/L (21-32); Chloride 104.0 mmol/L (98-107); Creatinine Clr Calc Pharmacy 84.6 ml/min; Glucose 88.0 mg/dl (70-99(Fasting)); Potassium 3.7 mmol/L (3.5-5.1); Sodium 141.0 mmol/L (136-145)
[2025-09-02] MEDS: POLYETHYLENE (MIRALAX) 17 GM PACK PO ONE (16:16)
--- NOTE | 2025-09-02 17:43 | Billing Data ---
Date of Service September 02, 2025 Coding Level of Care Code 04605 SUB INP/OBS CARE
[2025-09-03] MEDS: POLYETHYLENE (MIRALAX) 17 GM PACK PO PRN (04:18)
--- NOTE | 2025-09-03 07:34 | Hospitalist Progress Note ---
Date of Service September 03, 2025 Assessment & Plan (1) Abdominal pain: (2) Constipation: (3) Diverticulitis: (4) DM2 (diabetes mellitus, type 2): Plan Ninfa is a 55yo female with PMHx diverticulosis w/ diverticulitis, HTN, DM2, came to the ED for continued abdominal pain R>L despite cipro and flagyl for outpatient mgmt of diverticulitis, admitted for abdominal pain, possible diverticulitis vs constipation vs other. Requires continued inpatient monitoring and medical management. #Abdominal pain Initially thought to be due to combination of known stool burden and diverticulitis on imaging - recently on cipro/flagyl, pain predominantly R>L how ever CT findings c/w splenic flexure diverticulitis - no perforation or abscess seen on imaging, and with generally benign abdominal exam - Escalated bowel regimen to GoLytely after Miralax 85g day prior was unsuccessful in relieving stool burden - continue Unasyn to cover for possible ongoing diverticulitis, plan to transition to Augmentin once better tolerating PO ---- in spite of all of this, her symptoms did not change in the least since admission, and she noted that the symptoms were really almost identical to the symptoms that she has been dealing with for the last few weeks. Other di fferentials seem to be exhausted based on her history and workup, and she did have abdominal wall trigger points (to at least epigastric, and 1 in her right lower abdomen) that were fairly tender to palpationwith no other clear etiology, we are suspecting somatic visceral reflex from the abdominal wall trigger points. Patient herself is understandably skeptical. Gave her information on this, but also offered to get additional opinions which she would appreciate. Consult GI and surgery, but if no other clear etiologies present themselves, or she continues to not to get better, would recommend abdominal wall trigger point injections #Dehydration - continue LR 100cc/hr while PO intake still subpar #Polycythemia, resolved -likely volume contraction from dehydration, currently resolved - if CBC 11/10 AM additionally normal may remove from differential #HTN - continue holding home meds while BP still soft and re-hydrating #DM2 -well controlled - with A1c 5's nothing needed DVT proph -lovenox Admission and Anticipated Discharge Date Admission Date: September 01, 2025 Supervising Physician Co-Signing Physician Notes I personally examined the patient and verified all burn[place] points of history and exam, discussed case, and agree with decision making with Dr Ibrahim Feeling about the same. No new changes. Also has not had a bowel movement. Vitals noted, in general she is awake and alert fatigued. HEENT normocephalic atraumatic mucous membranes moist. Abdomen is soft mild distention mild to moderate right sided and epigastric abdominal tenderness without guarding or reboundalmost identical to yesterday. Abdominal pain after several days of treating as though it was diverticulitis and constipation, we have been doing antibiotics and affecting a lot of bowel movementsbut affected zero change in her symptoms. This led to reexaminationand now my leading differential is somatic visceral reflex from abdominal wall trigger points. She is understandably skeptical about thisoffered injections, but she would prefer to exhaust other diagnostic considerations firstwill ask GI and surgery to see her. Discussed that confirming trigger points as an etiology is generally not under the purview of GI or surgery, but rather consulting them to see if they were to see any other etiologies that we would be overlooking prior to proceeding with trigger point injections. DVT prophylaxisLovenox Otherwise as above. Anoop Ocasio was seen and evaluated at bedside this AM. Notes Miralax day prior only triggered watery stool which she still had to strain to produce. Still having abdominal pain and some nausea but no vomiting. Tolerating small amt solids. On board to try GoLytely. Physical Exam Physical Exam: Gen: appearing in mild distress, tired CV: RRR, +s1/s2, no m/r/g Resp: clear to auscultation b/l, no w/r/R, no increased WOB GI/Abd: normo-hyperactive BS, no obvious distension, no guarding but tenderness to palpation of general abdomen mostly RLQ>LLQ>epigastric Neuro: no facial droop, speech intact, no focal deficits Results & Data Results & Data Vital Signs (Past 12 Hours) Vital Signs Temp Pulse Resp BP Pulse Ox O2 Del Method 09/03/25 07:26 37.2 C 62 16 131/83 96 Room Air 09/02/25 23:29 36.5 C 56 L 16 115/75 93 Room Air Resident Activity Tracking Resident Involvement: Resident Care Provided Care Provided: Adult Hospital Medicine (2) Constipation Constipation type: unspecified constipation type Qualified Code(s): K59.00 - Constipation, unspecified
[2025-09-03 07:48] LABS: Anion Gap 3.0 (3-11); Blood Urea Nitrogen 4.0 mg/dl (6-23); Calcium 9.0 mg/dl (8.6-10.3); Carbon Dioxide 32.0 mmol/L (21-32); Chloride 109.0 mmol/L (98-107); Creatinine Clr Calc Pharmacy 99.4 ml/min; Glucose 92.0 mg/dl (70-99(Fasting)); Potassium 4.1 mmol/L (3.5-5.1); Sodium 144.0 mmol/L (136-145)
[2025-09-03] MEDS: LAVAGE SOLUTION 4000ML PO SCH (12:03)
[2025-09-03] MEDS ORDERED: HYDROCORTISONE ACETATE 25 MG SUPP PR PRN (14:41)
[2025-09-03] MEDS: INFLUENZA VACC TS2025-26(6m+)/PF (IIV3) 0.5mL Syr IM ONE (17:43)
--- NOTE | 2025-09-03 19:07 | Billing Data ---
Date of Service September 03, 2025 Coding Level of Care Code 03844 SUB INP/OBS CARE MIN
[2025-09-04] MEDS ORDERED: Nursing to Pharmacy Communication SCH (04:45)
--- NOTE | 2025-09-04 06:46 | Hospitalist Progress Note ---
Date of Service September 04, 2025 Assessment & Plan (1) Abdominal pain: (2) Constipation: (3) Diverticulitis: (4) DM2 (diabetes mellitus, type 2): Plan Ninfa is a 55yo female with PMHx diverticulosis w/ diverticulitis, HTN, DM2, came to the ED for continued abdominal pain R>L despite cipro and flagyl for outpatient mgmt of diverticulitis, admitted for abdominal pain, possible diverticulitis vs constipation vs other. Requires continued inpatient monitoring and medical management. #Abdominal pain Likely due to combination of known stool burden and diverticulitis on imaging - recently on cipro/flagyl, pain predominantly R>L however CT findings c/w splenic flexure diverticulitis - no perforation or abscess seen on imaging, and with generally benign abdominal exam -GI consultation today. Would like to observe today and plan to do colonoscopy in the outpatient. -Unasyn switched to Augmentin today -Switched IV Pantoprazole and Famotidine to PO. If continues to remain well, hopefully can be discharged tomorrow. #Polycythemia, resolved -likely volume contraction from dehydration, currently resolved #HTN - continue holding home meds while BP still soft and re-hydrating #DM2 -well controlled - with A1c 5's nothing needed DVT proph -lovenox Admission and Anticipated Discharge Date Admission Date: September 01, 2025 Supervising Physician Co-Signing Physician Notes ATTESTATION I also saw the patient and confirmed [place] portions of the history and exam. I agree with the impression and plan in the resident documentation, and as summarized below. Fortunately, she is feeling much better this afternoon. She has been seen in consultation by gastroenterology and general surgery. She notes that today is the best she has felt since this all started. Upon our mid afternoon exam, mayi barrientos has several family embers at bedside. EXAM Hemodynamically stable and afebrile Alert and oriented. No distress appreciated. Heart regular rate and rhythm Respirations nonlabored Abdomen soft and nontender with my palpation upon examination. DATA Labs CBC and metabolic profile are unremarkable this morning. IMPRESSION & PLAN Diverticulitis Appreciate input of consultants She is looking much better today Will switch her over to p.o. Augmentin, first dose this evening to assure tolerability If she does well on Augmentin, should be able to get her home tomorrow a.m. with outpatient follow-up with gastroenterology Discussed that she will need a colonoscopy, likely 6-8 weeks post discharge. Additional per resident documentation Anoop Ocasio was seen and evaluated at bedside this AM.She reported that her abdominal pain is much improved. Infact she is having no pain at all. Denies any overnight events or new concerns. Review of Systems Review of Systems: As per HPI Physical Exam Constitutional: well developed Gastrointestinal (Abdomen): normal bowel sounds, soft, nontender, no hepatosplenomegaly Psychiatric: Orientation: alert and oriented x 3 Results & Data Results & Data Vital Signs (Past 12 Hours) Vital Signs Temp Pulse Resp BP Pulse Ox O2 Del Method 09/03/25 22:25 36.5 C 58 L 16 114/73 93 Room Air Resident Activity Tracking Resident Involvement: Resident Care Provided Care Provided: Adult Hospital Medicine (2) Constipation Constipation type: unspecified constipation type Qualified Code(s): K59.00 - Constipation, unspecified
[2025-09-04 06:59] LABS: Hematocrit (blood only) 39.1 % (37.0-47.0); Hemoglobin 13.1 g/dl (12.0-16.0); Mean Corpuscular Hemoglobin 30.5 pg (25.0-34.0); Mean Corpuscular Volume 90.9 fL (80.0-100.0); Platelet Count 141 K/uL (130-400); RDW Standard Deviation 41.1 fL (36.4-46.3); Red Blood Count 4.30 M/uL (4.20-5.40); White Blood Count 5.85 K/ul (4.8-10.8)
[2025-09-04 07:12] LABS: Anion Gap 5.0 (3-11); Blood Urea Nitrogen 5.0 mg/dl (6-23); Calcium 8.8 mg/dl (8.6-10.3); Carbon Dioxide 31.0 mmol/L (21-32); Chloride 109.0 mmol/L (98-107); Creatinine Clr Calc Pharmacy 87.0 ml/min; Glucose 105.0 mg/dl (70-99(Fasting)); Potassium 3.8 mmol/L (3.5-5.1); Sodium 145.0 mmol/L (136-145)
--- NOTE | 2025-09-04 08:55 | Electrocardiogram Report ---
Test Reason : Blood Pressure : */* mmHG Vent. Rate : 80 BPM Atrial Rate : 80 BPM P-R Int : 140 ms QRS Dur : 72 ms QT Int : 374 ms P-R-T Axes : 34 55 60 degrees QTcB Int : 431 ms Normal sinus rhythm Normal ECG No previous ECGs available Confirmed by Medardo De Souza ([id number]) on 09/04/2025 8:55:26 AM Referred By: REFERRED SELF Confirmed By: Medardo De Souza
--- NOTE | 2025-09-04 10:50 | Surgery Consultation ---
Date of Consultation September 04, 2025 Assessment & Plan (1) Diverticulitis: Plan Patient currently appears to be recovering well on IV antibiotics, abdominal pain has resolved, white blood cell count normal, afebrile. There is currently no indication for emergent surgical exploration at this time and we believe that she can follow-up with our colorectal specialist, Dr. Gregorio as an outpatient in 2 to 4 weeks, after completing a course of oral antibiotics to discuss performing a colonoscopy and the possibility of future surgery to reduce risk of recurrence of this diverticulitis. We believe that she could be transitioned to oral Augmentin at the time of discharge for an additional 10 days. Remainder of her care per the primary medicine team, general surgery will sign off at this time, but please recall or consult with any questions or concerns. History of Present Illness Reason for Consultation: Diverticulitis Attending Physician: Jeremiah Bui, DO History of Present Illness Patient is a 55-year-old female with a past medical history significant for hypertension, diabetes, and a recent diagnosis of diverticulitis, who presents to [facility] emergency department on September 01 complaining of abdominal pain times approximately 2 weeks. Patient states that she initially developed abdominal pain, localized to the lower pelvic area, described as sharp and stabbing, but no radiation of the pain, and no obvious aggravating or relieving factors. Initially, the patient did have some dysuria and urinary urgency and was concerned that she had a UTI or kidney stone which she has had in the past. Initially started on Cipro, but the lower pelvic pain worsened and so she had a CAT scan of the abdomen pelvis that showed findings concerning for diverticulitis along with splenic flexure. Oral Flagyl was added, but after several days the patient continued to experience significant abdominal pain, so she came to the emergency department for evaluation. Upon initial presentation the patient was hemodynamically stable and afebrile. Her exam was significant for moderate generalized tenderness to palpation, primarily in the epigastric area and right flank, but no overt peritoneal signs. Her labs were relatively unremarkable, her white blood cell count was normal. She had a CAT scan of the abdomen pelvis that showed findings concern for vague haziness in the splenic flexure concerning for possible diverticulitis. There were concerns for possible failure of oral antibiotic therapy, so she was admitted to the hospitalist service for IV antibiotics. General surgery/colorectal surgery was consulted today for our evaluation. Upon initial evaluation today, the patient states that she is feeling much better, states that her abdominal pain has resolved, tolerating a regular diet this morning without any nausea or vomiting, afebrile, again white blood cell count normal. Patient denies any chest pain, shortness of breath, nausea, vomiting, fevers or chills. Allergies Allergy/AdvReac Type Severity Reaction Status Date / Time hydrocodone [From [place]] Allergy Intermediate Itchiness Verified 09/01/25 16:28 Sulfa (Sulfonamide Allergy Intermediate Rash Verified 09/01/25 16:28 Antibiotics) Home Medications Medication Instructions Recorded Confirmed Type oxycodone 5 mg tablet 5 mg PO Q6H PRN pain #8 tabs 07/19/19 09/01/25 Rx alprazolam 0.5 mg tablet 0.5 mg PO TID PRN Anxiety 09/01/25 09/01/25 History atorvastatin 10 mg tablet 10 mg PO DAILY 09/01/25 09/01/25 History hydrochlorothiazide 12.5 mg tablet 12.5 mg PO DAILY PRN SWELLING 09/01/25 09/01/25 History losartan 50 mg tablet 50 mg PO QAM 09/01/25 09/01/25 History ondansetron HCl 4 mg tablet 4 mg PO Q8H PRN NAUSEA/VOMITING 09/01/25 09/01/25 History potassium chloride 20 mEq 20 meq PO DAILY 09/01/25 09/01/25 History tablet,extended release tirzepatide 5 mg/0.5 mL 5 mg subcut WK 09/01/25 09/01/25 History subcutaneous pen injector (Mounjaro) trazodone 50 mg tablet 50 mg PO HS PRN Insomnia 09/01/25 09/01/25 History vilazodone 40 mg tablet 40 mg PO QAM 09/01/25 09/01/25 History Patient History Medical History Kidney stone Social History Smoking Status: Current every day smoker Tobacco Type: Cigarettes Cigarettes Per Day: 6; Do You Dip or Chew Tobacco: No; Hx Alcohol Use: No Hx Substance Use: No Preferred Language: Mohawk Communication Ability: Effective Belt Back Operator Required: No Beliefs That Will Affect Care: None Current Living Situation: Family Feels Safe at Home: Yes Assistive Devices: Glasses Review of Systems Review of Systems: All systems reviewed & are unremarkable except as noted in HPI & below Physical Exam Physical Exam: Gen: Awake and alert, resting comfortably in bed in NAD CV: RRR PULM: non-labored breathing Abd: Abd soft, non-tender, non-distended ext: no edema to bilateral lower ext, SCDs in place, non-tender, feet warm and well perfusted Results & Data Vital Signs (Past 12 Hours) Vital Signs Temp Pulse Resp BP Pulse Ox O2 Del Method 09/04/25 07:20 36.7 C 58 L 14 133/85 91 Room Air PG Care Time/CCT Total # of Minutes Spent Total Time Spent with Patient: Total time spent is greater than 50% in coordination of care (as documented) at patient's floor/unit and/or counseling patient: [place] [address] IN/OBS CONSULT LVL 2,35M Patient Type New History Problem Focused Exam Problem Focused Medical Decision Making Low Complexity Diagnoses Diverticulitis K57.92
--- NOTE | 2025-09-04 12:55 | Gastrointestinal Consultation ---
Date of Consultation September 04, 2025 Assessment & Plan (1) Diverticulitis: -Continue IV antibiotics while hospitalized. Plan to complete a 10 day course of antibiotic treatment in total. -Low residue diet -OK to use Miralax 1-2 doses daily to avoid constipation -Outpatient colonoscopy in 6-8 weeks Supervising Physician Co-Signing Physician Notes I personally saw and examined the patient. I have reviewed the chart and agree with the documentation provided by the VASCULAR NURSE including discussion about the assessment, treatment and plan. Briefly, 55 yo female who presented to the ED due to diverticulitis that had failed outpatient therapy. A CT scan shows mild diverticulitis of the sigmoid colon. She is currently on IV Unasyn. She did use a bowel prep for constipation and this improved her abdominal pain. WBC count 5,850. She is on a regular diet but is avoiding fiber. She has never had a colonoscopy. No pertinent family history. After a bowel movement, her symptoms have improved markedly. She is tolerating a soft solid diet. We are happy to do a colonoscopy in 6 weeks. I told her to go on a low fiber diet for the next week and then gradually increase fiber in her diet. She should follow-up outpatient with GI. We have no further recommendations. We will sign off. Please call us back if there is any issues or questions. History of Present Illness Reason for Consultation: Diverticulitis Attending Physician: Jeremiah Bui, History of Present Illness Patient is a 55 yo female who presented to the ED due to diverticulitis that had failed outpatient therapy. A CT scan shows mild diverticulitis of the sigmoid colon. She is currently on IV Unasyn. She did use a bowel prep for constipation and this improved her abdominal pain. WBC count 5,850. She is on a regular diet but is avoiding fiber. She has never had a colonoscopy. No pertinent family history. She is following with general surgery at [place] and apparently gen surg has been consulted here as well. This is her first episode of diverticulitis. CT abdomen/pelvis: IMPRESSION: 1. Colonic diverticulosis. Mild diverticulitis of the splenic flexure of the colon. No free air or abscess. 2. No bowel obstruction. 3. Mild prominence of intrahepatic bile ducts likely related to cholecystectomy. Allergies Allergy/AdvReac Type Severity Reaction Status Date / Time hydrocodone [From [place]] Allergy Intermediate Itchiness Verified 09/01/25 16:28 Sulfa (Sulfonamide Allergy Intermediate Rash Verified 09/01/25 16:28 Antibiotics) Home Medications Medication Instructions Recorded Confirmed Type oxycodone 5 mg tablet 5 mg PO Q6H PRN pain #8 tabs 07/19/19 09/01/25 Rx alprazolam 0.5 mg tablet 0.5 mg PO TID PRN Anxiety 09/01/25 09/01/25 History atorvastatin 10 mg tablet 10 mg PO DAILY 09/01/25 09/01/25 History hydrochlorothiazide 12.5 mg tablet 12.5 mg PO DAILY PRN SWELLING 09/01/25 09/01/25 History losartan 50 mg tablet 50 mg PO QAM 09/01/25 09/01/25 History ondansetron HCl 4 mg tablet 4 mg PO Q8H PRN NAUSEA/VOMITING 09/01/25 09/01/25 History potassium chloride 20 mEq 20 meq PO DAILY 09/01/25 09/01/25 History tablet,extended release tirzepatide 5 mg/0.5 mL 5 mg subcut WK 09/01/25 09/01/25 History subcutaneous pen injector (Anthony) trazodone 50 mg tablet 50 mg PO HS PRN Insomnia 09/01/25 09/01/25 History vilazodone 40 mg tablet 40 mg PO QAM 09/01/25 09/01/25 History Patient History Medical History Kidney stone Social History Smoking Status: Current every day smoker Tobacco Type: Cigarettes Cigarettes Per Day: 6; Do You Dip or Chew Tobacco: No; Hx Alcohol Use: No Hx Substance Use: No Preferred Language: Swazi Communication Ability: Effective Rn Teacher Required: No Beliefs That Will Affect Care: None Current Living Situation: Family Feels Safe at Home: Yes Assistive Devices: Glasses Review of Systems Gastrointestinal: no abdominal pain (improved) and no constipation (improved) Physical Exam Constitutional: well developed Gastrointestinal (Abdomen): normal bowel sounds, soft, nontender, no hepatosplenomegaly Psychiatric: Orientation: alert and oriented x 3 Results & Data Vital Signs (Past 12 Hours) Vital Signs Temp Pulse Resp BP Pulse Ox O2 Del Method 09/04/25 07:20 36.7 C 58 L 14 133/85 91 Room Air PG Care Time/CCT Total # of Minutes Spent Total Time Spent with Patient: Total time spent is greater than 50% in coordination of care (as documented) at patient's floor/unit and/or counseling patient: Coding Level of Care Code 52333 IN/OBS CONSULT LVL 4,60M Diagnoses Diverticulitis K57.92
[2025-09-04 15:00] VITALS: O2SAT 95
[2025-09-04] MEDS: AMOXICILLIN/CLAVULANATE 875 MG TAB PO SCH (17:02)
[2025-09-04] MEDS: ACETAMINOPHEN 325 MG TAB PO PRN (17:33)
[2025-09-04] MEDS: FAMOTIDINE 20 MG TAB PO SCH (20:04)
--- NOTE | 2025-09-05 06:56 | Hospitalist Progress Note ---
Date of Service September 05, 2025 Assessment & Plan (1) Abdominal pain: (2) Constipation: (3) Diverticulitis: (4) DM2 (diabetes mellitus, type 2): Plan Ninfa is a 55yo female with PMHx diverticulosis w/ diverticulitis, HTN, DM2, came to the ED for continued abdominal pain R>L despite cipro and flagyl for outpatient mgmt of diverticulitis, admitted for abdominal pain, possible diverticulitis vs constipation vs other. Requires continued inpatient monitoring and medical management. #Abdominal pain Likely due to combination of known stool burden and diverticulitis on imaging - recently on cipro/flagyl, pain predominantly R>L however CT findings c/w splenic flexure diverticulitis - no perforation or abscess seen on imaging, and with generally benign abdominal exam -GI consultation today. Would like to observe today and plan to do colonoscopy in the outpatient. -Unasyn switched to Augmentin today -Switched IV Pantoprazole and Famotidine to PO. If continues to remain well, hopefully can be discharged tomorrow. #Polycythemia, resolved -likely volume contraction from dehydration, currently resolved #HTN - continue holding home meds while BP still soft and re-hydrating #DM2 -well controlled - with A1c 5's nothing needed DVT proph -lovenox Admission and Anticipated Discharge Date Admission Date: September 01, 2025 Anoop Ocasio was seen and evaluated at bedside this AM.She reported that her abdominal pain is much improved. Infact she is having no pain at all. Denies any overnight events or new concerns. Review of Systems Review of Systems: As per HPI Physical Exam Constitutional: well developed Gastrointestinal (Abdomen): normal bowel sounds, soft, nontender, no hepatosplenomegaly Psychiatric: Orientation: alert and oriented x 3 Results & Data Results & Data Vital Signs (Past 12 Hours) Vital Signs Temp Pulse Resp BP Pulse Ox O2 Del Method 09/04/25 23:25 36.6 C 58 L 14 123/76 95 Room Air (2) Constipation Constipation type: unspecified constipation type Qualified Code(s): K59.00 - Constipation, unspecified
[2025-09-05 07:23] VITALS: BP 130/83; PULSE 59; RESP 16; TEMP 97.5
--- NOTE | 2025-09-05 11:59 | Discharge Summary ---
Date of Service September 05, 2025 Admission HPI Per Admitting Provider Patient is a very pleasant 55-year-old female who presents with about 2 weeks of abdominal pain. She started with right-sided abdominal pain about 2 weeks ago. Was treated with Cipro and Flagyl, but has not improved at all. At one point early in the course she also had some degree of urethral pain and urinary urgency, and given that she had right sided pain and the urinary symptoms, she had a CT scan with concern for if she was passing kidney stone/had pyelonephritisthis was whenever she was first shown to have diverticulitisbut at the splenic flexure. Since the initial onset of right sided abdominal pain, it has secondarily generalized and is now fairly diffuse. She does note also having to strain for bowel movements. No fevers chills or sweats. Poor p.o. intake and some indigestion, although not overt vomiting. Notes she has been feeling so bad and has had such bad p.o. intake over the last 2 weeks she has lost about 12 pounds. Past medical history includes well-controlled diabetesshe notes she is on Mounjaro but also notes that her last A1c was in the mid fives. Hypertension. Depression/anxiety. Family history includes diabetes, hyperlipidemia, hypertension. She is an RN at [employer]. Admission Exam Per Admitting Provider In general she is awake alert pleasant no distress but does appear quite fatigued. HEENT normocephalic atraumatic mucous membranes slightly dry. Cardio is regular without rubs murmurs or gallops. Lungs clear without rales rhonchi or wheezes good effort no accessory muscle use. Abdomen is soft, mild diffuse tenderness seems to be worse epigastric and right sided, a little bit left- sided. No guarding rebound or rigidity. Extremities show no sinus clubbing or edema no calf tenderness. Neuro without focal deficits. Skin without rashes pallor or icterus. Labs and diagnostics notedCT scan from [facility] from previous showed splenic diverticulitis and I believe moderate fecal retention, CT scan from today reviewed as wellsplenic flexure diverticulitis no abscessand to my review while there is not an overwhelming amount of gas and feces there is notable gas and feces. Appendix not visualized. Principal Diagnosis 1. Diverticulitis Discharge Exam Constitutional: well developed Gastrointestinal (Abdomen): normal bowel sounds, soft, nontender, no hepatosplenomegaly Psychiatric: Orientation: alert and oriented x 3 Discharge Data Allergies Allergy/AdvReac Type Severity Reaction Status Date / Time hydrocodone [From [place]] Allergy Intermediate Itchiness Verified 09/01/25 16:28 Sulfa (Sulfonamide Allergy Intermediate Rash Verified 09/01/25 16:28 Antibiotics) Consultations 09/01/25 16:32 ED Decision to Admit Stat 09/03/25 19:07 Consult Gastroenterology Routine Consult General Surgery Routine Ordered Studies 09/01/25 14:22 CT abd pelvis IV con only Stat Hospital Course (1) Constipation: (2) DM2 (diabetes mellitus, type 2): (3) Essential hypertension: (4) Dehydration: (5) Diverticulitis: (6) Abdominal pain: Plan #Abdominal pain Likely due to combination of known stool burden and diverticulitis on imaging - recently on cipro/flagyl, pain predominantly R>L however CT findings c/w splenic flexure diverticulitis - no perforation or abscess seen on imaging, and with generally benign abdominal exam - continue Augmentin (until 09/10)to complete antibiotics course for diverticulitis -Followup with gastroenterology and plan for colonoscopy in the outpatient. #Dehydration - encouraged to drink plenty of water and fluids daily #HTN - continue home meds #DM2 -well controlled - with A1c 5's nothing needed Total Time Total Time Spent Total Time Spent (In Minutes): Jeremiah Stovall DO, attending physician, spent 25 minutes myself seeing the patient, reviewing the chart, and documenting today. Discharge Plan Discharge Items Patient Disposition: Home - Self-Care Reason For Visit: DIVERTICULITIS, SEVERE ABDOMINAL PAIN Discharge Diagnosis: 1. Diverticulitis Condition on Discharge: Fair Activity: Per Instructions section Non-emergency contact: Primary Care Provider Call non-emergency contact if: your symptoms worsen and your pain is not controlled Follow-up/Referrals: Nino Spears PA-C [Primary Care Provider] - 09/12/25 8:00 am Diet: Regular Addtl Attending Provider Instructions: You were admitted for intractable abdominal pain and constipation since 08/31/25 with the suspicion that you had failed outpatient management of diverticulitis on cipro/flagyl. You have continued to be on comparable IV antibiotics for suspected component of diverticulitis, but with your lack of BM in several days and the abdominal pain with nausea and lack of appetite, it became apparent that the constipation was likely playing a bigger role in your symptoms. Started GoLytely after Miralax was unsuccessful, with good effect of relieving your significant stool burden. Due your clinical improvement and gradual medical stability, we are comfortable with your discharge today. #Abdominal pain Likely due to combination of known stool burden and diverticulitis on imaging - recently on cipro/flagyl, pain predominantly R>L however CT findings c/w splenic flexure diverticulitis - no perforation or abscess seen on imaging, and with generally benign abdominal exam - continue Augmentin (until 09/10)to complete antibiotics course for diverticulitis -Followup with gastroenterology and plan for colonoscopy in the outpatient. -Follow up with surgery for further discussion regarding possible colorectal surgery for recurrent diverticulitis in the outpatient. #Dehydration - encouraged to drink plenty of water and fluids daily #HTN - continue home meds #DM2 -well controlled - with A1c 5's nothing needed Please make sure that you followup with your PCP within next week. Pending Studies at Discharge: No Stand-Alone Forms: My [facility], Smoking Cessation Medications and DC Order Prescriptions: New amoxicillin-pot clavulanate 875-125 mg tablet 1 tab PO BID 10 Days Qty: 20 0RF Continued oxycodone 5 mg tablet 5 mg PO Q6H PRN (Reason: pain) Qty: 8 0RF losartan 50 mg tablet 50 mg PO QAM trazodone 50 mg tablet 50 mg PO HS PRN (Reason: Insomnia) atorvastatin 10 mg tablet 10 mg PO DAILY ondansetron HCl 4 mg tablet 4 mg PO Q8H PRN (Reason: NAUSEA/VOMITING) alprazolam 0.5 mg tablet 0.5 mg PO TID PRN (Reason: Anxiety) hydrochlorothiazide 12.5 mg tablet 12.5 mg PO DAILY PRN (Reason: SWELLING) vilazodone 40 mg tablet 40 mg PO QAM potassium chloride 20 mEq tablet extended release 20 meq PO DAILY Mounjaro 5 mg/0.5 mL pen injector 5 mg SUBCUT WK Rx Instructions: ON HOLD SATURDAYS Discharge Orders: Discharge Order (Routine); Ordered 09/05/25 Ordered By: Clau Smalls/Other Patient Handouts: Amoxicillin/Clavulanate Oral Tablet, Diverticulitis Dc Admission Data Admit Date/Time: 09/01/25 17:17 Attending Provider: Jeremiah Bui Admit Provider: Talat Rudolph Primary Care Provider: Nino Spears Other Providers: Talat Rudolph; Phil Ford; Agustin Matt. Other Interventions: Discharge Summary Assessment (RN) Last Done: 09/05/25 09:51 Supervising Physician Co-Signing Physician Notes ATTESTATION I also saw the patient and confirmed [place] portions of the history and exam. I agree with the impression and plan in the resident documentation, and as summarized below. Feeling well and looking forward to discharge. She is tolerating PO diet and Augmentin without difficulty. EXAM Hemodynamically stable and afebrile Alert and oriented. Heart regular rate and rhythm Respirations nonlabored Abdomen soft and nontender with my palpation upon examination. DATA Labs CBC and metabolic profile are unremarkable this morning. IMPRESSION & PLAN Diverticulitis Appreciate input of consultants Tolerating PO diet and Abx; continue for 10 days total of Augmentin Discussed that she will need a colonoscopy, likely 6-8 weeks post discharge. Discussed s/s for which to monitor; discussed diet recommendations as she recovers Additional per resident documentation Resident Activity Tracking Resident Involvement: Resident Care Provided Care Provided: Adult Hospital Medicine
== END 2025-09-05 11:14 | disposition home or self-care (01) ==
LOC: ED 13:44 → INTOOBSV 17:17 → SUATTDRO 17:17 → 3W 17:17